=== PATIENT | female | born 1995 | race Caucasian/White ===

== ENCOUNTER 2020-09-10 09:20 | Day surgery (SDC) | payer OTHER ==
[~2020-09-10] VITALS: Ht 162.6 cm; Wt 77.1 kg
[~2020-09-10 09:20] MED LIST: CLINDAMYCIN PHOS 600 MG/ D5W 50 ML PREMIX IV ONE
[2020-09-10 09:49] LABS: HCG,QUAL RESULT NEGATIVE (NEGATIVE)
[2020-09-10] MEDS ORDERED: SUGAMMADEX SODIUM 200 MG/2 ML VIAL IV ONE (12:45)
[2020-09-10] MEDS ORDERED: PROPOFOL 200MG/ 20ML VIAL (DIPRIVAN) IV ONE (12:45)
[2020-09-10] MEDS ORDERED: LR 1,000 ML IV.SOLN IV ONE (12:45)
[2020-09-10] MEDS ORDERED: DESFLURANE 15 MIN GAS INH ONE (12:45)
[2020-09-10] MEDS ORDERED: ONDANSETRON HCL 4 MG/2 ML VIAL IVP ONE (12:45)
[2020-09-10] MEDS ORDERED: MIDAZOLAM HCL 5 MG/5 ML VIAL IVP ONE (12:45)
[2020-09-10] MEDS ORDERED: ROCURONIUM BROMIDE 10 MG/ML (ZEMURON) IV ONE (12:45)
[2020-09-10] MEDS ORDERED: DEXAMETHASONE SOD PHOSPHATE 4 MG/ML VIAL IVP ONE (12:45)
[2020-09-10] MEDS ORDERED: fentaNYL CITRATE 250 MCG/5 ML AMP IV ONE (12:45)
[2020-09-10] MEDS ORDERED: ONDANSETRON HCL 4 MG/2 ML VIAL IVP PRN (13:30)
[2020-09-10] MEDS ORDERED: LR 1,000 ML IV SCH (13:30)
[2020-09-10] MEDS ORDERED: MIDAZOLAM HCL 2 MG/2 ML VIAL (VERSED) IVP PRN (13:30)
[2020-09-10] MEDS ORDERED: HYDROmorphone 1 MG/ML INJ. CARTRIDGE IVP PRN ×3 (13:30→14:15)
[2020-09-10] MEDS ORDERED: METOCLOPRAMIDE HCL 10 MG/2 ML VIAL IVP PRN (13:30)
[2020-09-10] MEDS ORDERED: MEPERIDINE HCL/PF 25 MG/ML DISP.SYRIN IVP PRN (13:30)
[2020-09-10] MEDS ORDERED: ACETAMINOPHEN I.V. 1000 MG 100 ML IV ONE (13:38)
[2020-09-10] MEDS ORDERED: HYDROcodone/ACETAMIN 5-325 MG TAB (NORCO/ VICODIN) PO PRN ×2 (14:15)
[2020-09-10] MEDS ORDERED: D5/0.45 NS 1,000 ML IV SCH (14:15)
[2020-09-10] MEDS: HYDROmorphone 2 MG/ML VIAL ONE ×4 (14:55→15:10)
[2020-09-10] MEDS ORDERED: HYDROcodone/ACETAMIN 5-325 MG TAB (NORCO/ VICODIN) ONE (16:11)
[2020-09-10] MEDS ORDERED: ONDANSETRON HCL 4 MG/2 ML VIAL ONE (16:38)
[2020-09-10 17:00] VITALS: BP_SYST 117
[2020-09-10] MEDS ORDERED: METOCLOPRAMIDE HCL 10 MG/2 ML VIAL ONE (17:08)
== END 2020-09-10 17:40 | disposition home or self-care (01) ==
LOC: SDS 09:20 → SMU 09:26 → SDS 17:40
PROVIDERS: ATTEND Colon & Rectal Surgery
DX: K80.10 Calculus of gallbladder with chronic cholecystitis without obstruction (principal); E66.9 Obesity, unspecified; E78.5 Hyperlipidemia, unspecified; Z88.0 Allergy status to penicillin; Z88.1 Allergy status to other antibiotic agents; Z88.2 Allergy status to sulfonamides; Z79.899 Other long term (current) drug therapy; Z20.822 Contact with and (suspected) exposure to COVID-19
CPT/HCPCS: 47563; 74300; 84703; 88304; C1727; C1758; C9399; J0131; J1100; J1170; J2250; J2405; J2704; J2765; J3010; J3490; J7120; Q9967; U0003; 76000